=== PATIENT | female | born 1935 | race Caucasian/White ===

== ENCOUNTER → 2018-11-21 11:46 | Outpatient (CLI) | payer MEDICARE, OTHER, SELFPAY ==
--- NOTE | 2018-11-21 | DI.MRI.S_ITS ---
PROCEDURE: MR SHOULDER RT WO CON INDICATIONS: Pain in right shoulder TECHNIQUE: Noncontrast oblique coronal T2 fast spin echo with fat saturation, oblique sagittal T1 spin echo and T2 fast spin echo with fat saturation, axial T1 spin echo and T2 fast spin echo with fat saturation through the shoulder. COMPARISON: [facility] Outside Film, RG, HUMERUS MIN 2VW (RT), 09/13/2018, 9:35. [facility] [place], CR, XR HUMERUS RIGHT, 10/25/2018, 13:59. FINDINGS: Image quality: Excellent. Rotator cuff: Tendinosis and low to moderate grade articular surface partial thickness tear involving distal supraspinatus at its insertion the humeral head is seen extending to musculotendinous junction. Tendinosis and low grade articular surface partial thickness tear involving distal infraspinatus is also seen at its insertion the humeral head extending to musculotendinous junction. There is distal subscapularis tendinosis. Sagittal images demonstrate moderate supraspinatus muscle atrophy. Bones and bursae: Subacute appearing impacted fracture involving left humeral neck/proximal humeral shaft is seen with superior and medial migration of the proximal humeral shaft in relation to humeral head an approximately 8 mm overlapping of fracture site. Mild to moderate surrounding marrow edema is seen. No other fracture or dislocation. 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 Small amount of joint fluid is noted, and no gross intra-articular loose body. Capsule and soft tissues: In the absence of intra-articular contrast, there is signal abnormality seen in superior labrum at 12:00 position suspicious for focal superior labral tear. The glenohumeral ligaments appear intact. The long head of the biceps tendon demonstrates normal location and morphology. The rotator interval appears normal, without fibrosis. The coracohumeral ligament is normal in thickness. IMPRESSION: 1. Subacute appearing impacted left proximal humeral shaft/neck fracture as above. No other fracture or dislocation. Moderate shoulder joint osteoarthritis. 2. Tendinosis and moderate grade articular surface partial thickness tear involving distal supraspinatus and infraspinatus. Distal subscapularis tendinosis. 3. Finding is suspicious for focal superior labral tear at 12:00 position. Dictated by: Edmond Delarosa M.D. on 11/21/2018 at 13:51 Approved by: Edmond Delarosa M.D. on 11/21/2018 at 14:03
== END ==
PROVIDERS: Visit Provider Physician Assistant
DX: M25.511 Pain in right shoulder (principal); S42.392A Other fracture of shaft of left humerus, initial encounter for closed fracture; M19.012 Primary osteoarthritis, left shoulder; X58.XXXA Exposure to other specified factors, initial encounter
CPT/HCPCS: 73221